=== PATIENT | male | born 1995 | race Two or more races ===

== ENCOUNTER 2022-05-19 01:02 | Emergency (ER) | payer OTHER ==
[~2022-05-19] VITALS: Ht 180.3 cm; Wt 81.6 kg
--- NOTE | 2022-05-19 01:25 | NUR ---
PATIENT [id number]. OVERDOSE ON UNKNOWN SUBSTANCE. NARCAN 2MG IV GIVEN. PATIENT IS A/O X 3, RR EVEN AND UNLABORED, NO SOB NOTED. PATIENT CONNECTED TO PRIVATE TUTOR AND POX. WILL CONTINUE TO MONITOR.
[2022-05-19 02:05] LABS: BASOPHILS % (AUTO) 0.3 % (0.0-2.0); EOSINOPHILS % (AUTO) 3.5 % (0.0-6.0); HEMATOCRIT 41 % (39-51); HEMOGLOBIN 13.4 g/dL (13.5-17.5); LYMPHOCYTES # (AUTO) 2.5 K/uL (0.8-4.8); LYMPHOCYTES % (AUTO) 16.8 % (20.0-44.0); MEAN CORPUSCULAR HGB CONC 33 g/dl (31.0-36.0); MEAN CORPUSCULAR VOLUME 85 fL (80-96); MONOCYTES # (AUTO) 1.4 K/uL (0.1-1.30); MONOCYTES % (AUTO) 9.4 % (2.0-12.0); NEUTROPHILS # (AUTO) 10.3 K/uL (1.8-8.9); PLATELET COUNT (AUTO) 215 K/uL (150-450); RED BLOOD CELL COUNT(AUTO) 4.86 MIL/uL (4.5-6.0); WHITE BLOOD COUNT (AUTO) 14.7 K/uL (4.3-11.0)
[2022-05-19 02:25] LABS: ALANINE AMINOTRANSFERASE 79 U/L (12-78); ALBUMIN 3.8 g/dL (3.4-5.0); ALCOHOL, BLOOD < 3 mg/dL (0-0); ALKALINE PHOSPHATASE 134 U/L (46-116); ASPARTATE AMINOTRANSFERASE 87 U/L (15-37); BILIRUBIN,DIRECT 0.1 mg/dL (0.0-0.2); BILIRUBIN,TOTAL 0.4 mg/dL (0.2-1.0); CALCIUM, SERUM 8.7 mg/dL (8.5-10.1); CARBON DIOXIDE 30 mmol/L (21-32); CHLORIDE 103 mmol/L (98-107); GLUCOSE 164 mg/dL (74-106); POTASSIUM 3.7 mmol/L (3.5-5.1); SODIUM SERUM 140 mmol/L (136-145); TOTAL PROTEIN, SERUM 7.3 g/dL (6.4-8.2); UREA NITROGEN, BLOOD 13 mg/dL (7-18)
[2022-05-19 02:26] LABS: ACETAMINOPHEN 0 ug/ml (10-30)
[2022-05-19 02:54] LABS: BILIRUBIN,URINE NEGATIVE (NEGATIVE); COLOR,URINE YELLOW (YELLOW); LEUKOCYTE ESTERASE ,URINE NEGATIVE (NEGATIVE); NITRITE, URINE NEGATIVE (NEGATIVE); PROTEIN,URINE 1+ mg/dl (NEGATIVE); UGLUCOSE TRACE mg/dL (NEGATIVE); UROBILINOGEN,URINE 0.2 EU/dL (0.2)
[2022-05-19 02:57] LABS: BACTERIA,URINE Few /HPF (None Seen); RBC,URINE 0-2 /HPF (0-2); SQUAMOUS EPITHELIAL CELL,UR Few /HPF (None Seen)
--- NOTE | 2022-05-19 04:30 | NUR ---
FACESHEET AND CLINICALS FAXED TO [facility].
--- NOTE | 2022-05-19 05:44 | NUR ---
PATIENT ACEEPTED UNDER MD ESTRELLA AT [facility] REPORT [phone]
--- NOTE | 2022-05-19 05:53 | NUR ---
[facility] CALLED FOR BLS GOING TO [facility] PER [facility] - ETA @[phone]
--- NOTE | 2022-05-19 05:57 | NUR ---
REPORT GIVEN TO NURSE ACOSTA
--- NOTE | 2022-05-19 07:55 | NUR ---
Patient Tranfers to outside Facility- [facility]. Hospital was called prior to transport and report given. Patient transferring for voluntary psychiatric admission. All belongings transported with patient. All IV lines and ID bands removed prior to transport. Patient stable at time of discharge and transported off of unit via gurney accompanied by 2 shuttle buggy operator.
[2022-05-19 07:58] VITALS: BP 123/70
== END 2022-05-19 07:59 ==
LOC: EDBD 01:09 → ER 01:09
DX: T40.602A Poisoning by unspecified narcotics, intentional self-harm, initial encounter (principal); R09.89 Other specified symptoms and signs involving the circulatory and respiratory systems; Y92.481 Parking lot as the place of occurrence of the external cause; R05.9 Cough, unspecified; Z20.822 Contact with and (suspected) exposure to COVID-19
CPT/HCPCS: 99285; 71045; 85025; 80048; 80076; 81001; 36415; 87426; 80143; 80320; 80307; C9803; G0480

== ENCOUNTER 2024-12-04 17:57 | Inpatient (IN) | payer MEDICAID ==
[~2024-12-04] VITALS: Ht 167.6 cm; Wt 72.1 kg
[2024-12-04] MEDS ORDERED: PIPERACI/TAZO 3.375GM/D5W 50ML PB IV ONE (19:24)
[2024-12-04] MEDS ORDERED: ACETAMINOPHEN ES 500 MG TABLET ONE (19:27)
[2024-12-04] MEDS ORDERED: ACETAMINOPHEN 325 MG TABLET ONE (19:29)
[2024-12-04] MEDS: IV LR 1000 ML 1,000 ML BAG IV ONE (19:30)
[2024-12-04] MEDS: ACETAMINOPHEN 325 MG TABLET PO ONE (19:30)
[2024-12-04 19:34] LABS: BASOPHILS % (AUTO) 0.4 % (0.0-2.0); EOSINOPHILS % (AUTO) 0.1 % (0.0-6.0); HEMATOCRIT 42 % (39-51); HEMOGLOBIN 13.7 g/dL (13.5-17.5); LYMPHOCYTES # (AUTO) 1.2 K/uL (0.8-4.8); LYMPHOCYTES % (AUTO) 9.8 % (20.0-44.0); MEAN CORPUSCULAR HEMOGLOBIN 28 PG (26.0-33.0); MEAN CORPUSCULAR HGB CONC 33 g/dl (31.0-36.0); MEAN CORPUSCULAR VOLUME 85 fL (80-96); MONOCYTES # (AUTO) 2.2 K/uL (0.1-1.30); MONOCYTES % (AUTO) 18.6 % (2.0-12.0); NEUTROPHILS # (AUTO) 8.4 K/uL (1.8-8.9); NEUTROPHILS % (AUTO) 71.1 % (43.0-81.0); PLATELET COUNT (AUTO) 237 K/uL (150-450); RED BLOOD CELL COUNT(AUTO) 4.95 MIL/uL (4.5-6.0); WHITE BLOOD COUNT (AUTO) 11.9 K/uL (4.3-11.0)
[2024-12-04] MEDS: PIPERACILLIN /TAZOBACTAM 3.375 G in IV D5W 50 ML IV ONE (19:35)
[2024-12-04] MEDS ORDERED: ONDANSETRON HCL/PF 4 MG/2 ML VIAL ONE (19:44)
[2024-12-04] MEDS ORDERED: MORPHINE SULFATE INJ 4 MG/ML DISP.SYRIN ONE (19:45)
[2024-12-04 19:50] LABS: ALANINE AMINOTRANSFERASE 24 U/L (12-78); ALBUMIN 2.8 g/dL (3.4-5.0); ALKALINE PHOSPHATASE 137 U/L (46-116); ASPARTATE AMINOTRANSFERASE 23 U/L (15-37); BILIRUBIN,DIRECT 0.3 mg/dL (0.0-0.2); BILIRUBIN,TOTAL 1.1 mg/dL (0.2-1.0); CALCIUM, SERUM 9.4 mg/dL (8.5-10.1); CARBON DIOXIDE 28 mmol/L (21-32); CHLORIDE 95 mmol/L (98-107); GLUCOSE 146 mg/dL (74-106); POTASSIUM 3.2 mmol/L (3.5-5.1); SODIUM SERUM 135 mmol/L (136-145); TOTAL PROTEIN, SERUM 8.3 g/dL (6.4-8.2); UREA NITROGEN, BLOOD 8 mg/dL (7-18)
[2024-12-04] MEDS: MORPHINE SULFATE INJ 4 MG/ML DISP.SYRIN IV ONE (19:51)
[2024-12-04] MEDS: ONDANSETRON HCL/PF - ER 4 MG/2 ML VIAL IV ONE (19:51)
[2024-12-04 19:52] LABS: INR 1.16 (0.91-1.10); PARTIAL THROMBOPLASTIN TIME 35.7 SEC (24.3-34.3); PROTHROMBIN TIME 12.2 SECS (9.2-11.1)
[2024-12-04] MEDS ORDERED: CT SWABBABLE VALVE TRANS SET 1 EA INFUS.SET MC ONE (20:02)
[2024-12-04] MEDS ORDERED: IOHEXOL-300 100 ML VIAL IV ONE (20:02)
[2024-12-04] MEDS ORDERED: IV NS 0.9% 250 ML IV ONE (20:02)
[2024-12-04 20:17] LABS: LACTIC ACID 2.5 mmol/L (0.4-2.0)
[2024-12-04] MEDS ORDERED: VANCOMYCIN 1 GM /D5W 250 ML PB IV ONE (20:23)
[2024-12-04] MEDS: VANCOMYCIN 1 GM in IV D5W 250 ML IV ONE (20:25)
[2024-12-04 20:33] LABS: ANISOCYTOSIS 1+; LYMPHOCYTES % (MANUAL) 12 % (16-48); MONOCYTES % (MANUAL) 18 % (0-11.0); NEUTROPHILS % (MANUAL) 70 (42-76); PLATELET ESTIMATE ADEQUATE
[2024-12-04] MEDS ORDERED: POTASSIUM CHLORIDE 20 MEQ TAB.PRT.SR PO ONE (20:39)
[2024-12-04] MEDS: POTASSIUM CHLORIDE 20 MEQ TAB.PRT.SR PO ONE (20:42)
[2024-12-05] MEDS ORDERED: PIPERACILLIN /TAZOBACTAM 3.375 G in IV D5W 50 ML IV SCH (06:00)
[2024-12-05] MEDS ORDERED: ONDANSETRON HCL/PF 4 MG/2 ML VIAL IVP PRN (06:00)
[2024-12-05] MEDS ORDERED: MAGNESIUM HYDROXIDE 30 ML UDC PO PRN (06:00)
[2024-12-05] MEDS ORDERED: dexaMETHasone SOD PHOSPHATE 1 ML ONE (06:08)
[2024-12-05] MEDS: dexaMETHasone SOD PHOSPHATE 10 MG/ML VIAL IV ONE (06:14)
[2024-12-05 06:19] LABS: BASOPHILS % (AUTO) 0.3 % (0.0-2.0); EOSINOPHILS # (AUTO) 0.1 K/uL (0.0-0.7); EOSINOPHILS % (AUTO) 0.6 % (0.0-6.0); HEMATOCRIT 39 % (39-51); HEMOGLOBIN 12.8 g/dL (13.5-17.5); LYMPHOCYTES # (AUTO) 1.5 K/uL (0.8-4.8); LYMPHOCYTES % (AUTO) 13.5 % (20.0-44.0); MEAN CORPUSCULAR HEMOGLOBIN 28 PG (26.0-33.0); MEAN CORPUSCULAR HGB CONC 33 g/dl (31.0-36.0); MEAN CORPUSCULAR VOLUME 86 fL (80-96); MONOCYTES # (AUTO) 2.2 K/uL (0.1-1.30); MONOCYTES % (AUTO) 20.1 % (2.0-12.0); NEUTROPHILS # (AUTO) 7.1 K/uL (1.8-8.9); NEUTROPHILS % (AUTO) 65.5 % (43.0-81.0); PLATELET COUNT (AUTO) 219 K/uL (150-450); RED BLOOD CELL COUNT(AUTO) 4.55 MIL/uL (4.5-6.0); RED CELL DISTRIBUTION WIDTH 13.9 % (11.5-15.0); WHITE BLOOD COUNT (AUTO) 10.9 K/uL (4.3-11.0)
[2024-12-05 06:26] LABS: CALCIUM, SERUM 9.2 mg/dL (8.5-10.1); CREATININE 0.9 mg/dL (0.6-1.3)
[2024-12-05 07:00] VITALS: BP 114/70; TEMP 97.9; O2SAT 97
[2024-12-05] MEDS: IV NS 0.9% 1,000 ML IV PRN (09:28)
[2024-12-05] MEDS: VANCOMYCIN HCL 1.25 GM in IV D5W 250 ML IV SCH (09:29)
[2024-12-05] MEDS: PIPERACILLIN /TAZOBACTAM 3.375 G in IV D5W 100 ML IV SCH (09:29)
[2024-12-05] MEDS: PANTOPRAZOLE 40 MG TABLET.DR PO SCH (09:58)
[2024-12-05 11:28] LABS: EOSINOPHILS % (MANUAL) 1 % (0-4); LYMPHOCYTES % (MANUAL) 16 % (16-48); MONOCYTES % (MANUAL) 18 % (0-11.0); NEUTROPHILS % (MANUAL) 65 (42-76)
[2024-12-05 11:29] LABS: PLATELET ESTIMATE ADEQUATE
[2024-12-05 16:00] VITALS: BP 110/69; TEMP 98.2; O2SAT 97
[2024-12-05 20:00] VITALS: BP 95/75; TEMP 98.1; O2SAT 96
[2024-12-05 20:23] VITALS: BP 95/75; TEMP 98.1; O2SAT 96
[2024-12-05] MEDS: ACETAMINOPHEN 325 MG TABLET PO PRN (23:45)
[2024-12-06] VITALS (7 sets, daily range): BP systolic 97–130; BP diastolic 48–79; TEMP 98.1–99; O2SAT 94–99
[2024-12-06] MEDS: HYDROCODONE/APAP 5/325MG TABLET PO PRN (06:10)
[2024-12-06 07:05] LABS: BASOPHILS % (AUTO) 0.1 % (0.0-2.0); EOSINOPHILS % (AUTO) 0.1 % (0.0-6.0); HEMATOCRIT 37 % (39-51); HEMOGLOBIN 12.1 g/dL (13.5-17.5); LYMPHOCYTES # (AUTO) 1.6 K/uL (0.8-4.8); LYMPHOCYTES % (AUTO) 7.6 % (20.0-44.0); MEAN CORPUSCULAR HEMOGLOBIN 28 PG (26.0-33.0); MEAN CORPUSCULAR HGB CONC 33 g/dl (31.0-36.0); MEAN CORPUSCULAR VOLUME 86 fL (80-96); MONOCYTES # (AUTO) 2.8 K/uL (0.1-1.30); MONOCYTES % (AUTO) 13.2 % (2.0-12.0); NEUTROPHILS # (AUTO) 16.7 K/uL (1.8-8.9); PLATELET COUNT (AUTO) 285 K/uL (150-450); RED BLOOD CELL COUNT(AUTO) 4.35 MIL/uL (4.5-6.0); RED CELL DISTRIBUTION WIDTH 14.2 % (11.5-15.0); WHITE BLOOD COUNT (AUTO) 21.1 K/uL (4.3-11.0)
[2024-12-06 07:25] LABS: CREATININE 0.8 mg/dL (0.6-1.3); MAGNESIUM 2.3 mg/dL (1.8-2.4); PHOSPHORUS 4.4 mg/dL (2.5-4.9); POTASSIUM 3.7 mmol/L (3.5-5.1)
[2024-12-06 12:15] LABS: LYMPHOCYTES % (MANUAL) 13 % (16-48); MONOCYTES % (MANUAL) 5 % (0-11.0); NEUTROPHILS % (MANUAL) 82 (42-76); PLATELET ESTIMATE ADEQUATE
[2024-12-06 14:43] LABS: HIV-1 p24 ANTIGEN NON REACTIVE (NONREACTIVE); HIV-1/2 ANTIBODY NON REACTIVE (NONREACTIVE)
[2024-12-07 07:20] LABS: BASOPHILS % (AUTO) 0.2 % (0.0-2.0); EOSINOPHILS # (AUTO) 0.2 K/uL (0.0-0.7); EOSINOPHILS % (AUTO) 1.1 % (0.0-6.0); HEMATOCRIT 39 % (39-51); HEMOGLOBIN 12.5 g/dL (13.5-17.5); LYMPHOCYTES # (AUTO) 2.2 K/uL (0.8-4.8); LYMPHOCYTES % (AUTO) 13.3 % (20.0-44.0); MEAN CORPUSCULAR HEMOGLOBIN 28 PG (26.0-33.0); MEAN CORPUSCULAR HGB CONC 32 g/dl (31.0-36.0); MEAN CORPUSCULAR VOLUME 86 fL (80-96); MONOCYTES % (AUTO) 12.1 % (2.0-12.0); NEUTROPHILS # (AUTO) 11.9 K/uL (1.8-8.9); NEUTROPHILS % (AUTO) 73.3 % (43.0-81.0); PLATELET COUNT (AUTO) 361 K/uL (150-450); RED BLOOD CELL COUNT(AUTO) 4.51 MIL/uL (4.5-6.0); RED CELL DISTRIBUTION WIDTH 14.3 % (11.5-15.0); WHITE BLOOD COUNT (AUTO) 16.2 K/uL (4.3-11.0)
[2024-12-07 07:28] LABS: APPEARANCE,URINE CLEAR (CLEAR); BILIRUBIN,URINE NEGATIVE (NEGATIVE); BLOOD, URINE NEGATIVE Ery/uL (NEGATIVE); COLOR,URINE YELLOW (YELLOW); KETONES,URINE NEGATIVE (NEGATIVE); LEUKOCYTE ESTERASE ,URINE TRACE (NEGATIVE); NITRITE, URINE NEGATIVE (NEGATIVE); PH,URINE 6.5 (5.0-8.0); PROTEIN,URINE NEGATIVE (NEGATIVE); UGLUCOSE NEGATIVE (NEGATIVE); UROBILINOGEN,URINE 0.2 EU/dL (0.2)
[2024-12-07 08:00] VITALS: BP 110/57; TEMP 98.2; O2SAT 96
[2024-12-07 08:38] LABS: MAGNESIUM 2.1 mg/dL (1.8-2.4)
[2024-12-07 08:43] LABS: RBC,URINE 0-2 /HPF (0-2)
[2024-12-07 08:44] LABS: ADD URINE CULTURE YES; BACTERIA,URINE Few /HPF (None Seen); SQUAMOUS EPITHELIAL CELL,UR 0-2 /HPF (None Seen)
[2024-12-07 08:55] LABS: CALCIUM, SERUM 8.8 mg/dL (8.5-10.1); CREATININE 0.8 mg/dL (0.6-1.3); POTASSIUM 3.6 mmol/L (3.5-5.1)
[2024-12-07 20:00] VITALS: BP 103/56; TEMP 98.2; O2SAT 98
[2024-12-08 04:11] LABS: RAPID PLASMA REAGIN QUAL. Non Reactive (Non Reactive)
[2024-12-08 07:37] LABS: CALCIUM, SERUM 8.7 mg/dL (8.5-10.1); CREATININE 0.8 mg/dL (0.6-1.3); POTASSIUM 3.9 mmol/L (3.5-5.1)
[2024-12-08 08:05] LABS: BASOPHILS # (AUTO) 0.1 K/uL (0.0-0.2); BASOPHILS % (AUTO) 0.8 % (0.0-2.0); EOSINOPHILS # (AUTO) 0.3 K/uL (0.0-0.7); EOSINOPHILS % (AUTO) 2.9 % (0.0-6.0); HEMATOCRIT 40 % (39-51); HEMOGLOBIN 12.8 g/dL (13.5-17.5); LYMPHOCYTES % (AUTO) 18.2 % (20.0-44.0); MEAN CORPUSCULAR HEMOGLOBIN 28 PG (26.0-33.0); MEAN CORPUSCULAR HGB CONC 32 g/dl (31.0-36.0); MEAN CORPUSCULAR VOLUME 86 fL (80-96); MONOCYTES # (AUTO) 1.3 K/uL (0.1-1.30); MONOCYTES % (AUTO) 11.3 % (2.0-12.0); NEUTROPHILS # (AUTO) 7.5 K/uL (1.8-8.9); NEUTROPHILS % (AUTO) 66.8 % (43.0-81.0); PLATELET COUNT (AUTO) 417 K/uL (150-450); RED BLOOD CELL COUNT(AUTO) 4.66 MIL/uL (4.5-6.0); RED CELL DISTRIBUTION WIDTH 14.3 % (11.5-15.0); WHITE BLOOD COUNT (AUTO) 11.2 K/uL (4.3-11.0)
[2024-12-09 06:12] LABS: CHLAMYDIA TRACHOMATIS NAA Negative (Negative); NEISSERIA GONORRHOEAE NAA Negative (Negative)
== END 2024-12-08 16:25 | disposition left against medical advice (07) | DRG 720 ==
LOC: ER 18:05 → UNDOADMIN 21:24 → TELE 21:24 → MED 12-07 11:21
PROVIDERS: ADMIT Nurse Practitioner Family; ATTEND Nurse Practitioner Acute Care
DX: A41.9 Sepsis, unspecified organism (principal); E87.20 Acidosis, unspecified; E44.1 Mild protein-calorie malnutrition; D57.1 Sickle-cell disease without crisis; E88.09 Other disorders of plasma-protein metabolism, not elsewhere classified; L03.213 Periorbital cellulitis; E87.6 Hypokalemia; L03.211 Cellulitis of face; Z59.00 Homelessness unspecified; R73.9 Hyperglycemia, unspecified; E80.6 Other disorders of bilirubin metabolism; F15.10 Other stimulant abuse, uncomplicated; Z68.25 Body mass index [BMI] 25.0-25.9, adult; M27.2 Inflammatory conditions of jaws; J32.0 Chronic maxillary sinusitis
CPT/HCPCS: 36415; 70486-TC; 70487-TC; 71045-TC; 80048-TC; 80061-TC; 80076-TC; 80202-TC; 81001; 83605-TC; 83735-TC; 84100-TC; 85025-TC; 85730-TC; 86592; 86593; 86803; 87040-TC; 87081-TC; 87086-TC; 87491; 87591; 87806; 98960; A4223; G0378; J1100; J2270; J2405; J2543; J3370; J7030; J7050; J7060; J7120; Q9967